=== PATIENT | female | born 1940 | race Hispanic/Latino ===

== ENCOUNTER 2021-03-20 14:08 | Outpatient (CLI) | payer MEDICARE, OTHER ==
--- NOTE | 2021-03-20 17:49 | Mammography Report ---
DIGITAL SCREENING MAMMOGRAM WITH CAD, 03/20/2021 CLINICAL INFORMATION / INDICATION: Routine screening mammography. SCREENING MAMMO TECHNIQUE: Digital bilateral 2D mammography was obtained in the craniocaudal and mediolateral obliqu e projections. This examination was interpreted with the benefit of Computer-Aided Detection analysis . COMPARISON: 01/01/2017 through 02/09/2020. FINDINGS: Breast Density: The breasts are extremely dense, which lowers the sensitivity of mammography. No dominant mass, suspicious calcifications, or architectural distortion in either breast. There are moderate benign breast arterial calcifications bilaterally. No new abnormality is seen. IMPRESSION: No mammographic evidence of malignancy. Follow up recommendation: Routine yearly BI-RADS Category 2: Benign. A "normal" or negative report should not discourage follow up or biopsy of a clinically significant f inding. A written summary of these findings will be mailed to the patient. The patient will be entered into a mammography reporting system which will generate a reminder letter for the patient's next appointmen t at the appropriate interval. The [employer] recommends yearly mammograms starting at age 40 and continuing as l nazario as a woman is in good health. Breast MRI is recommended for women with an approximate 20-25% or greater lifetime risk of breast cancer, including women with a strong family history of breast or ova rafaela cancer or who have been treated for Hodgkin's disease. Signer Name: Marcin Dawson MD Signed: 03/20/2021 5:45 PM Workstation Name: [id number]
== END 2021-03-20 14:09 | disposition home or self-care (01) ==
LOC: SPVWC 14:08
PROVIDERS: ATTEND Surgery
DX: Z12.31 Encounter for screening mammogram for malignant neoplasm of breast (principal); N64.89 Other specified disorders of breast
CPT/HCPCS: 77067

== ENCOUNTER 2021-06-13 08:14 | Day surgery (SDC) | payer MEDICARE, OTHER ==
[2021-06-13] MEDS ORDERED: SODIUM CHLORIDE 0.9% 500 ML 500 ML IV SCH ×2 (09:00)
[2021-06-13] MEDS ORDERED: ASPIRIN EC 325 MG TAB PO SCH (09:30)
[2021-06-13 09:31] LABS: Basophils % (Auto) 0.8 % (0.0-1.8); Eosinophils # (Auto) 0.1 K/mm3 (0.0-0.4); Eosinophils % (Auto) 2.7 % (0.0-4.3); Hematocrit 35.4 % (30.3-42.9); Hemoglobin 11.8 gm/dl (10.1-14.3); Lymphocytes # (Auto) 1.1 K/mm3 (1.2-5.4); Lymphocytes % (Auto) 25.3 % (13.4-35.0); Mean Corpuscular HGB Conc 33 % (30-34); Mean Corpuscular Volume 100 fl (79-97); Monocytes # (Auto) 0.4 K/mm3 (0.0-0.8); Monocytes % (Auto) 9.4 % (0.0-7.3); Platelet Count 149 K/mm3 (140-440); Red Blood Count 3.55 M/mm3 (3.65-5.03); Red Cell Distribution Width 13.9 % (13.2-15.2)
[2021-06-13 10:02] LABS: Calcium 9.8 mg/dL (8.4-10.2)
[2021-06-13 10:07] LABS: INR 0.96 (0.87-1.13)
[2021-06-13] MEDS ORDERED: MIDAZOLAM 2 MG/2 ML INJ ONE (13:47)
[2021-06-13] MEDS ORDERED: fentaNYL 100 MCG/2 ML INJ ONE (13:47)
[2021-06-13] MEDS ORDERED: HEPARIN/NS 5000 UNIT/500ML 1,000 ML IR ONE (13:48)
[2021-06-13] MEDS ORDERED: LIDOCAINE (2%) 20 MG/1 ML VIAL 20 ML MDV INFILTRATI ONE (13:48)
--- NOTE | 2021-06-13 15:54 | Cardiac Catherization Report ---
DATE OF SERVICE: 06/13/2021 CARDIAC CATHETERIZATION REPORT REASON FOR PROCEDURE: An 81-year-old woman referred for outpatient cardiac catheterization, preoperative for abdominal surgery. PROCEDURES: 1. Right heart catheterization. 2. Left heart catheterization. 3. Selective left and right coronary angiography. 4. Left ventricular angiography. 5. Sedation time start 14:54, end 15:08. DESCRIPTION OF PROCEDURE: The patient was prepped and draped in a sterile fashion after informed consent. Right femoral artery and vein were both entered using the Seldinger technique. A 6-[place]oz[place] sheath was placed in the artery and an 8-[place] sheath in the vein. A [place] catheter was then advanced to the pulmonary artery position. Cardiac output was measured using thermodilution method. A pigtail catheter was then advanced in the left ventricle. Simultaneous left and right heart filling pressures were recorded. The right heart catheter was then pulled back and right heart pressures were recorded on pullback. We then performed left ventricular angiography, following which the pigtail catheter was pulled across the aortic valve and transaortic gradient recorded. Finally, selective left and right coronary angiography was performed using #4 left and right Wai catheters. The catheters were then removed, sheath removed and hemostasis achieved at both arterial site and venous site using manual compression. The patient was returned to the postprocedure unit in stable condition. There were no complications. FINDINGS: HEMODYNAMICS: Mean right atrial pressure was 15. Right ventricular pressure was 50/15. Pulmonary artery pressure was 50/25. The mean pulmonary artery wedge pressure was 25. Left ventricular end diastolic pressure was 25. Ascending aortic pressure was 152/81. There was no significant pressure gradient on pullback across the aortic valve. Cardiac output was 3.9 liters per minute. CORONARY ANGIOGRAPHY: The left main coronary artery was free of significant disease. The left anterior descending artery and its diagonal branches contained mild luminal irregularities. The circumflex artery and its obtuse marginal branches contained mild luminal irregularities. The right coronary artery was dominant. This vessel contained an acute bend in the morphology of its proximal segment, but otherwise this vessel was angiographically normal with no coronary lesions visualized. Left ventricle was very mildly dilated, there was mild left ventricular systolic dysfunction with mild diffuse hypokinesis, ejection fraction 40-45%. CONCLUSION: 1. Mild to moderate increase in right and left heart filling pressures. 2. Moderate pulmonary hypertension with pulmonary artery systolic pressures of 50. 3. No significant coronary artery disease, angiographically near normal coronary arteries. 4. Mild left ventricular systolic dysfunction, ejection fraction 40-45%, representing mild nonischemic cardiomyopathy. RECOMMENDATIONS: Medical therapy and risk factor modification. TID: [id number] RECEIPT: [id number] CA/LUIZ
[2021-06-13] MEDS ORDERED: cloNIDine 0.1 MG TAB PO ONE (17:00)
[2021-06-13] MEDS ORDERED: traMADol 50 MG TAB PO PRN (17:34)
--- NOTE | 2021-06-13 17:37 | Discharge Summary ---
Short Stay Discharge Plan Activity: advance as tolerated Weight Bearing Status: Partial Weight Bearing Diet: low fat, low cholesterol, low salt Wound: keep clean and dry Special Instructions: smoking cessation, no heavy lifting (3 days) Follow up with: BRYANT SANDERS JR, MD [Primary Care Provider] - 7 Days CHRIS OSORIO MD [Staff Physician] - 7 Days
[2021-06-13] MEDS ORDERED: SODIUM CHLORIDE 0.9% 1000 ML 1,000 ML IV SCH (18:00)
[2021-06-13 19:10] VITALS: BP 153/74
--- NOTE | 2021-06-17 14:30 | Electrocardiograph Report ---
[facility], [place] Test Date: 2021-06-13 Test Time: 09:32:40 Pat Name: NADINE HARMON Department: Room: Gender: F [employer]: SHASHA : 1940 Requested By: DI MARTINEZ Order Number: [id number] Reading MD: Di Martinez Measurements Intervals [place] Rate: 90 P: ND: QRS: 87 QRSD: 98 T: 77 QT: 375 QTc: 460 Interpretive Statements Atrial fibrillation with occasional PVCs Nonspecific intraventricular conduction delay Anterior infarct, old No previous ECG available for comparison Electronically Signed On 06-17-2021 14:30:21 EDT by Di Martinez
== END 2021-06-13 20:20 | disposition home or self-care (01) ==
LOC: CATHLABREC 08:14
PROVIDERS: ATTEND Internal Medicine Cardiovascular Disease
DX: I31.3 Pericardial effusion (noninflammatory) (principal); I82.91 Chronic embolism and thrombosis of unspecified vein; I11.0 Hypertensive heart disease with heart failure; I50.9 Heart failure, unspecified; I48.0 Paroxysmal atrial fibrillation; E78.00 Pure hypercholesterolemia, unspecified; K21.9 Gastro-esophageal reflux disease without esophagitis; M19.90 Unspecified osteoarthritis, unspecified site; D64.9 Anemia, unspecified; F32.9 Major depressive disorder, single episode, unspecified; Z90.710 Acquired absence of both cervix and uterus; Z98.890 Other specified postprocedural states; Z82.49 Family history of ischemic heart disease and other diseases of the circulatory system; Z79.899 Other long term (current) drug therapy; Z87.891 Personal history of nicotine dependence; Z88.8 Allergy status to other drugs, medicaments and biological substances
CPT/HCPCS: 36415; 80048; 85025; 85610; 85730; 93005; 93460; 99156; C1894; J1644; J2250; J3010; J7040; Q9967

== ENCOUNTER 2022-02-24 09:37 | Outpatient (CLI) | payer MEDICARE, OTHER ==
--- NOTE | 2022-02-24 10:28 | Mammography Report ---
DIGITAL DIAGNOSTIC MAMMOGRAM WITH CAD CONVENTIONAL, 02/24/2022 CLINICAL INFORMATION / INDICATION: Family history of breast cancer TECHNIQUE: Digital bilateral mammographic imaging was performed. This examination was interpreted with the benefit of Computer-aided Detection analysis. COMPARISON: 03/20/2021 and prior FINDINGS: Breast Density: The breasts are extremely dense, which lowers the sensitivity of mammography. Moderate bilateral arterial calcifications are again seen. Other benign-appearing calcifications are again noted. IMPRESSION: No mammographic evidence of malignancy. Follow up recommendation: Routine yearly screening mammogram. BI-RADS Category 2: BENIGN. A "normal" or negative report should not discourage follow up or biopsy of a clinically significant f inding. A written summary of these findings will be mailed to the patient. The patient will be entered into a mammography reporting system which will generate a reminder letter for the patient's next appointmen t at the appropriate interval. According to the [employer], yearly mammograms are recommended starting at age 40 and continuing as long as a woman is in good health. Breast MRI is recommended for women with an syeda roximately 20-25% or greater lifetime risk of breast cancer, including women with a strong family his tory of breast or ovarian cancer and women who have been treated for Hodgkin's disease. Signer Name: Brannon Pollack MD Signed: 02/24/2022 10:24 AM Workstation Name: [id number]
== END 2022-02-24 09:38 | disposition home or self-care (01) ==
LOC: MAMMO 09:37
PROVIDERS: ATTEND Surgery
DX: R92.1 Mammographic calcification found on diagnostic imaging of breast (principal)
CPT/HCPCS: 77066